=== PATIENT | female | born 1965 | race American Indian/Alaskan Native ===

== ENCOUNTER 2016-09-28 18:52 | Emergency (ER) | payer SELFPAY ==
[2016-09-28] MEDS ORDERED: BSS 1 DROPS, TETRACAINE 0.5% 1 DROPS, FUL-GLO 1 MG OU ONE (22:10)
--- NOTE | 2016-09-28 22:15 | Emergency Department Report ---
[facility] Chief Complaint: Eye Problems Stated Complaint: POSS PINK EYE Time Seen by Provider: 09/28/16 22:10 Duration: 3 Days Severity: moderate Symptoms: Yes Eye Itching, Yes Eye Redness, Yes Eye Pain, Yes Mucous Drainage, Yes Blurred Vision, No Purulent Drainage, No Preceding URI, No H/O Allergic Rhinitis, No Contact Lens Use, No Trauma, No Fever, No Headache Other History: Patient is a 51-year-old female presents to ED complaining of waking up Wednesday morning the swollen and red left eye. Patient states since then is gone bit worse. Patient states she had normal object in her eyes. Patient states redness has gotten worse and moderate swelling on the apparently. She admits mild itching and yellowish discharge from the eye. ED Review of Systems ROS: Stated complaint: POSS PINK EYE Other details as noted in HPI Constitutional: denies: chills, fever Eyes: other (blurred vision of left). denies: eye pain, eye discharge, vision change ENT: denies: ear pain, throat pain, dental pain, hearing loss Respiratory: denies: cough, shortness of breath, wheezing Cardiovascular: denies: chest pain, palpitations Endocrine: no symptoms reported Gastrointestinal: denies: abdominal pain, nausea, diarrhea Genitourinary: denies: urgency, dysuria, discharge Musculoskeletal: denies: back pain, joint swelling, arthralgia Skin: denies: rash, lesions Neurological: denies: headache, weakness, paresthesias Psychiatric: denies: anxiety, depression Hematological/Lymphatic: denies: easy bleeding, easy bruising ED Past Medical Hx - Past Medical History Additional medical history: gall stone - Surgical History Additional Surgical History: oral surgery - Social History Smoking Status: Current Every Day Smoker Substance Use Type: Alcohol - Medications Home Medications: Home Medications Medication Instructions Recorded Confirmed Last Taken Type HYDROcodone/APAP 5-325 [[place] 1 each PO Q6HR PRN #12 tablet 07/11/14 Unknown Rx 5/325] Ibuprofen [Motrin 800 MG tab] 800 mg PO Q8H PRN #30 tablet 09/28/16 Unknown Rx Polymyxin B Sulf/Trimethoprim 1 - 2 drop OP Q3HR #1 bottle 09/28/16 Unknown Rx [Polytrim Eye Drops 53294mnhqh/0.1%] [facility] Exam - Exam General: Vital signs noted. No distress. Alert and acting appropriately. Eye Exam: Left Injection, Left Mucous Discharge, Both EOMI, Neither Chemosis, Neither Abnormal Pupil, Neither Eye Foreign Body, Neither Lid Foreign Body, Neither Purulent Discharge, Neither Fluorescein Uptake, Neither Fluorescein Uptake (slit lamp), Neither Cell/Flare (slit lamp), Neither Corneal Edema, Neither Photophobia HEENT: No Nasal Congestion, No Pharyngeal Erythema Remainder of HEENT: Normal Lungs: Yes Clear Lung Sounds, Yes Good Air Exchange, No Wheezes, No Stridor, No Cough, No Nasal Flaring, No Retractions, No Use of Accessory Muscles ED Course Vital Signs 09/28/16 19:40 Temperature 98.7 F Pulse Rate 99 H Respiratory 17 Rate Blood Pressure 160/113 O2 Sat by Pulse 99 Oximetry ED Medical Decision Making - Medical Decision Making 51-year-old female presents with left eye conjunctivitis ED course: slit lamp shows negative corneal abrasion Discussed the patient needs to take medication antibiotic drops as prescribed. Visual acuity test done : See exam Vital signs are normal patient is in no acute distress Asymptomatic elevated Blood pressure in ED patient gave a clonidine 0.1 mg. Blood pressure reduced prior to discharge. Discussed to follow up with primary care physician Critical care attestation.: If time is entered above; I have spent that time in minutes in the direct care of this critically ill patient, excluding procedure time. ED Disposition Clinical Impression: Conjunctivitis of left eye Qualifiers: Conjunctivitis type: acute Acute conjunctivitis type: bacterial Qualified Code( s): H10.32 - Unspecified acute conjunctivitis, left eye Disposition: - TO HOME OR SELFCARE Is pt being admited?: No Does the pt Need Aspirin: No Condition: Stable Instructions: Conjunctivitis (ED), Orbital Cellulitis (ED) Prescriptions: Ibuprofen [Motrin 800 MG tab] 800 mg PO Q8H PRN #30 tablet PRN Reason: Pain Polymyxin B Sulf/Trimethoprim [Polytrim Eye Drops [id number]/0.1%] 1 - 2 drop OP Q3HR #1 bottle Referrals: PRIMARY CARE,MD [Primary Care Provider] - 3-5 Days [facility] [Outside] - 3-5 Days [facility] [Outside] - 3-5 Days Forms: Work/School Release Form(ED) Time of Disposition: 22:15
[2016-09-28] MEDS ORDERED: TETRACAINE 0.5% ONE (22:16)
[2016-09-28] MEDS ORDERED: FUL-GLO OP ONE ×2 (22:16→22:20)
[2016-09-28] MEDS ORDERED: TETRACAINE 0.5% OU ONE (22:18)
[2016-09-28] MEDS ORDERED: CATAPRES PO ONE (22:46)
[2016-09-28 23:19] VITALS: BP 150/106
== END 2016-09-28 23:46 | disposition home or self-care (01) ==
LOC: ED 18:52
DX: H10.32 Unspecified acute conjunctivitis, left eye (principal); F17.200 Nicotine dependence, unspecified, uncomplicated
CPT/HCPCS: 99283

== ENCOUNTER 2017-07-02 15:31 | Emergency (ER) | payer SELFPAY ==
[2017-07-02] MEDS ORDERED: CATAPRES PO ONE (18:45)
[2017-07-02 19:22] LABS: Basophils % (Auto) 0.3 % (0.0-1.8); Eosinophils # (Auto) 0.1 K/mm3 (0.0-0.4); Eosinophils % (Auto) 1.4 % (0.0-4.3); Hematocrit 30.5 % (30.3-42.9); Hemoglobin 9.4 gm/dl (10.1-14.3); Lymphocytes # (Auto) 2.2 K/mm3 (1.2-5.4); Lymphocytes % (Auto) 41.1 % (13.4-35.0); Mean Corpuscular HGB Conc 31 % (30-34); Monocytes # (Auto) 0.5 K/mm3 (0.0-0.8); Platelet Count 354 K/mm3 (140-440); Red Blood Count 4.96 M/mm3 (3.65-5.03); Red Cell Distribution Width 18.8 % (13.2-15.2)
[2017-07-02 19:23] LABS: Mean Corpuscular Hemoglobin 19 pg (28-32); Mean Corpuscular Volume 61 fl (79-97)
[2017-07-02 19:48] LABS: Alanine Aminotransferase 8 units/L (7-56); Albumin 3.9 g/dL (3.9-5); BUN/Creatinine Ratio 17; Blood Urea Nitrogen 12 mg/dL (7-17); Calcium 8.7 mg/dL (8.4-10.2); Hemolysis Index 37; Lipase 28 units/L (13-60)
--- NOTE | 2017-07-02 20:53 | Emergency Department Report ---
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 no vag c/o, no dysuria, no cough , no cp, hx of gb dz but "it;s not that today", no calf pain or swelling, no fever refuses a ua test. MD Complaint: abdominal pain -: unknown Location: diffuse Radiation: none Migration to: other (cross lower abdomen) Quality: fullness, sharp Consistency: intermittent, other (worse with flexion) Associated Symptoms: nausea. denies: vomiting, diarrhea, fever, chills, constipation, hematemesis, hematochezia, melena, hematuria, syncope - Related Data Previous Rx's Medication Instructions Recorded Last Taken Type HYDROcodone/APAP 5-325 [[place] 1 each PO Q6HR PRN #12 tablet 07/11/14 Unknown Rx 5/325] Ibuprofen [Motrin 800 MG tab] 800 mg PO Q8H PRN #30 tablet 09/28/16 Unknown Rx Polymyxin B Sulf/Trimethoprim 1 - 2 drop OP Q3HR #1 bottle 09/28/16 Unknown Rx [Polytrim Eye Drops 66788ocgpr/0.1%] traMADol [Ultram] 50 mg PO Q6HR PRN #15 tablet 07/03/17 Unknown Rx Allergies Allergy/AdvReac Type Severity Reaction Status Date / Time No Known Allergies Allergy Verified 07/02/17 16:16 ED Review of Systems ROS: Stated complaint: LOWER ABDOMINAL PAIN Other details as noted in HPI Comment: All other systems reviewed and negative Constitutional: denies: diaphoresis, fever, malaise ENT: denies: dental pain, hearing loss, epistaxis Respiratory: denies: shortness of breath, SOB with exertion, SOB at rest, stridor Cardiovascular: denies: chest pain, palpitations, dyspnea on exertion, orthopnea , edema, syncope, paroxysmal nocturnal dyspnea Gastrointestinal: abdominal pain. denies: vomiting, diarrhea, constipation, hematemesis, melena, hematochezia Genitourinary: denies: urgency, dysuria, frequency, hematuria, discharge, abnormal menses Neurological: denies: headache, weakness, numbness, paresthesias, confusion, abnormal gait, vertigo Hematological/Lymphatic: denies: easy bleeding ED Past Medical Hx - Past Medical History Previous Medical History?: No Additional medical history: gall stone - Surgical History Past Surgical History?: No Additional Surgical History: oral surgery - Social History Smoking Status: Current Every Day Smoker Substance Use Type: Alcohol - Medications Home Medications: Home Medications Medication Instructions Recorded Confirmed Last Taken Type HYDROcodone/APAP 5-325 [[place] 1 each PO Q6HR PRN #12 tablet 07/11/14 Unknown Rx 5/325] Ibuprofen [Motrin 800 MG tab] 800 mg PO Q8H PRN #30 tablet 09/28/16 Unknown Rx Polymyxin B Sulf/Trimethoprim 1 - 2 drop OP Q3HR #1 bottle 09/28/16 Unknown Rx [Polytrim Eye Drops [id number]/0.1%] traMADol [Ultram] 50 mg PO Q6HR PRN #15 tablet 07/03/17 Unknown Rx ED Physical Exam - General Limitations: No Limitations General appearance: alert, in no apparent distress - Head Head exam: Present: atraumatic, normocephalic - Eye Eye exam: Present: normal appearance, PERRL, EOMI - ENT ENT exam: Present: normal exam, normal orophraynx - Neck Neck exam: Present: normal inspection. Absent: tenderness, meningismus - Respiratory Respiratory exam: Present: normal lung sounds bilaterally. Absent: respiratory distress, wheezes, rales, rhonchi, stridor, chest wall tenderness, accessory muscle use, decreased breath sounds, prolonged expiratory - Cardiovascular Cardiovascular Exam: Present: regular rate, normal heart sounds. Absent: systolic murmur, diastolic murmur, rubs, gallop - GI/Abdominal GI/Abdominal exam: Present: soft, tenderness. Absent: distended, guarding, rigid, mass, bruit, pulsatile mass - Extremities Exam Extremities exam: Present: normal inspection, normal capillary refill. Absent: pedal edema, joint swelling, calf tenderness - Back Exam Back exam: Present: normal inspection, CVA tenderness (L). Absent: muscle spasm , paraspinal tenderness, vertebral tenderness - Neurological Exam Neurological exam: Present: alert, oriented X3, CN II-XII intact. Absent: motor sensory deficit - Psychiatric Psychiatric exam: Present: normal affect, normal mood - Skin Skin exam: Absent: cyanosis, diaphoretic, erythema, urticaria, vesicles, petechiae, pallor ED Course Vital Signs 07/02/17 07/02/17 07/02/17 16:16 21:02 21:06 Temperature 98.4 F 98.6 F Pulse Rate 80 80 80 Respiratory 20 16 Rate Blood Pressure 178/112 145/99 Blood Pressure 145/99 [Left] O2 Sat by Pulse 98 100 Oximetry 07/02/17 07/02/17 07/02/17 21:07 23:15 23:45 Temperature Pulse Rate Respiratory 16 16 16 Rate Blood Pressure Blood Pressure [Left] O2 Sat by Pulse 100 Oximetry 07/03/17 00:57 Temperature Pulse Rate 76 Respiratory 16 Rate Blood Pressure Blood Pressure 168/80 [Left] O2 Sat by Pulse 99 Oximetry ED Medical Decision Making - Lab Data Result diagrams: 07/02/17 19:10 07/02/17 19:10 - Radiology Data Radiology results: report reviewed - Medical Decision Making Patient refuses urine sample she is denying dysuria symptoms are mostly lower abdomen CT does show a fibroid tumors EKG was unremarkable with negative troponin laboratory studies were otherwise unremarkable patient has no surgical abdomen at this time she is in stable for outpatient follow-up she may have also had a strain to the abdominal wall given her work situation we will give her instructions about abdominal pain she is to make a follow-up appointment with [facility] and her regular doctor or return if new or alarming symptoms Critical care attestation.: If time is entered above; I have spent that time in minutes in the direct care of this critically ill patient, excluding procedure time. ED Disposition Clinical Impression: Abdominal wall contusion, Abdominal pain, Fibroids Disposition: TO HOME OR SELFCARE Is pt being admited?: No Condition: Stable Instructions: Abdominal Pain (ED), Uterine Fibroids (ED) Additional Instructions: see your regular doctor or the listed one, return if worse Prescriptions: traMADol [Ultram] 50 mg PO Q6HR PRN #15 tablet PRN Reason: Pain Referrals: EHSAN BANDA MD [Primary Care Provider] - 3-5 Days SELAM SHARP MD [Staff Physician] - 3-5 Days Time of Disposition: 01:13
[2017-07-02] MEDS ORDERED: TORADOL IM ONE (23:07)
--- NOTE | 2017-07-03 00:27 | Cat Scan Report ---
FINAL REPORT PROCEDURE: CT ABDOMEN PELVIS WO CON TECHNIQUE: Computerized axial tomography of the abdomen and pelvis was performed without intravenous contrast. This study is performed without intravascular contrast material and its sensitivity for abdominal and pelvic pathology, including neoplasms, inflammation, abscess, free fluid, thrombosis, arterial dissection and infarction, is reduced compared with a contrast enhanced study. HISTORY: flank pain COMPARISON: No prior studies are available for comparison. FINDINGS: Visualized lower thorax: No significant abnormality. Liver: Normal size and attenuation. Spleen: Normal size and attenuation. Gallbladder and biliary system: There are stones and sludge within the gallbladder lumen. No dilatation of the biliary ductal system. Pancreas: Normal. Adrenals: Normal. Kidneys: Both kidneys have normal size. No hydronephrosis. No renal stones or masses. GI tract: The stomach is normal. The small bowel has a normal caliber. No obstruction, ileus or enteritis. The cecum, appendix and colon are normal.. Lymph nodes and mesentery: Normal. Vasculature: Mild atherosclerosis of the aorta and branching vessels. Bladder: Normal. Reproductive organs: The uterus is enlarged. There is a mixed area of attenuation off the posterior right uterine myometrium, this measures to 8 centimeters. A large fibroid is suspected. Other etiologies are not excluded. The ovaries are not clearly visualized on this study.. Peritoneum: No free fluid. Musculoskeletal structures: No significant abnormality. Other: None. IMPRESSION: There is no evidence of intestinal or urinary tract obstruction. No ileus or enteritis. The appendix is normal. Cholelithiasis with minimal sludge formation. Enlarged uterus with suspected fibroid formation off the posterior right myometrium. This large fibroid measures up to 8 centimeters. Other etiologies of this uterine mass are not excluded on this study..
[2017-07-03 00:58] VITALS: BP 168/80
== END 2017-07-03 01:40 | disposition home or self-care (01) ==
LOC: ED 15:31
DX: D21.9 Benign neoplasm of connective and other soft tissue, unspecified (principal); F17.200 Nicotine dependence, unspecified, uncomplicated; S30.1XXA Contusion of abdominal wall, initial encounter; X50.1XXA Overexertion from prolonged static or awkward postures, initial encounter; Y93.89 Activity, other specified; Y92.89 Other specified places as the place of occurrence of the external cause; Y99.8 Other external cause status
CPT/HCPCS: 36415; 74176; 80053; 83690; 84484; 84703; 85025; 93005; 93010; 96372; 99284; J1885